=== PATIENT | male | born 1955 | race Caucasian/White ===

== ENCOUNTER → 2019-07-29 | Outpatient (CLI) | payer BC ==
--- NOTE | 2019-07-29 08:09 | US ---
EXAMINATION TYPE: US liver DATE OF EXAM: 07/29/2019 COMPARISON: NONE CLINICAL HISTORY: B18.2 Chronic viral hepatitis C. abdominal pain, chronic viral hepatitis EXAM MEASUREMENTS: Liver Length: 14.2 cm Gallbladder Wall: 0.6 cm CBD: 0.4 cm Right Kidney: 11.3 x 5.8 x 5.2 cm Pancreas: Tail obscured by overlying bowel gas Liver: thrombus noted within intrahepatic veins Gallbladder: stones, thickened GB wall Evidence for sonographic Yates's sign: no CBD: appears wnl Right Kidney: no evidence of hydronephrosis IMPRESSION: 1. 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 2. Thickened gallbladder wall with gallstones correlate for cholecystitis. Report called to referring clinician. A Red level critical message alert has been initiated for Ashley Quiroz MD via the [employer] Critical Results System on 07/29/2019 8:06 AM. This message alert has been sent to Ashley Quiroz MD v [facility] the preferences provided by the clinician for the receipt of Radiology Critical Findings. Message ID [id number].
== END | disposition home or self-care (01) ==
LOC: RADUSWWP 07:08
PROVIDERS: ATTEND Internal Medicine Gastroenterology
DX: K80.20 Calculus of gallbladder without cholecystitis without obstruction (principal); B18.2 Chronic viral hepatitis C
CPT/HCPCS: 76705

== ENCOUNTER 2019-10-09 12:15 | Day surgery (SDC) | payer BC ==
[2019-10-09 12:45] LABS: Mean Platelet Volume 8.7; Platelet Count 198 k/uL (150-450)
[2019-10-09 12:51] VITALS: TEMP 97.9
[2019-10-09 13:02] LABS: INR 1.1 (<1.2); Prothrombin Time 11.4 sec (9.0-12.0)
[2019-10-09] MEDS ORDERED: ALBUMIN HUMAN 25% 50 ML in EMPTY BAG 1 BAG IVPB SCH (14:00)
[2019-10-09 14:57] VITALS: BP 101/70; PULSE 73; RESP 14
--- NOTE | 2019-10-09 16:23 | US ---
EXAMINATION TYPE: US paracentesis abd w/image DATE OF EXAM: 10/09/2019 CLINICAL HISTORY: Ascites The procedure was discussed with the patient. The risks, complications, benefits, and alternatives we re discussed and any questions were answered. Informed consent was obtained. The patient was placed s upine on the ultrasound table and prepped and draped in the usual sterile fashion. All elements of maximal barrier technique were utilized. Under ultrasound guidance, access into the right lower quadrant was obtained with a 5 Maori one-step centesis catheter. Approximately 3.9 liters of clear serous fluid was removed. Catheter was removed and sterile bandage was applied. The patient was stable throughout the procedure and remained stable upon discharge from Department of Radiology. IMPRESSION: Successful ultrasound-guided paracentesis, with removal of 3.9 liters of clear serous fluid.
== END 2019-10-09 15:05 | disposition home or self-care (01) ==
LOC: RADPROMAIN 12:15
PROVIDERS: ATTEND Internal Medicine Gastroenterology
DX: R18.8 Other ascites (principal)
CPT/HCPCS: 36415; 49083; 82565; 85049; 85610

== ENCOUNTER 2019-10-23 08:50 | Day surgery (SDC) | payer BC ==
[2019-10-23 09:26] LABS: Mean Platelet Volume 8.7; Platelet Count 197 k/uL (150-450)
[2019-10-23 09:47] LABS: Prothrombin Time 10.5 sec (9.0-12.0)
[2019-10-23 10:30] VITALS: RESP 16
[2019-10-23 10:31] VITALS: TEMP 97.3
[2019-10-23] MEDS: ALBUMIN HUMAN 25% 50 ML in EMPTY BAG 1 BAG IVPB SCH ×3 (11:07→11:42)
[2019-10-23 11:43] VITALS: BP 95/66; PULSE 62
[2019-10-23 12:11] LABS: Basophils # (A) 0.1 k/uL (0-0.2); Basophils % (A) 1 %; Eosinophils # (A) 0.1 k/uL (0-0.7); Eosinophils % (A) 2 %; HCT 41.7 % (39.0-53.0); HGB 13.2 gm/dL (13.0-17.5); Lymphocytes # (A) 0.8 k/uL (1.0-4.8); Lymphocytes % (A) 11 %; MCH 31.7 pg (25.0-35.0); MCHC 31.6 g/dL (31.0-37.0); MCV 100.4 fL (80.0-100.0); Macrocytosis Slight; Monocytes # (A) 0.5 k/uL (0-1.0); Monocytes % (A) 7 %; Neutrophils # (A) 5.9 k/uL (1.3-7.7); Neutrophils % (A) 79 %; RBC 4.15 m/uL (4.30-5.90); RDW 14.9 % (11.5-15.5); WBC 7.4 k/uL (3.8-10.6)
[2019-10-23 12:26] LABS: Albumin 4.1 g/dL (3.5-5.0); Calcium 9.5 mg/dL (8.4-10.2); Potassium 4.4 mmol/L (3.5-5.1); Total Bilirubin 0.9 mg/dL (0.2-1.3)
--- NOTE | 2019-10-23 13:36 | US ---
EXAMINATION TYPE: US paracentesis abd w/image DATE OF EXAM: 10/23/2019 COMPARISON: NONE HISTORY: Ascites. PROCEDURE: Maximal barrier technique was utilized. The skin overlying a suitable pocket of fluid was localized with ultrasound and the overlying skin was prepped and draped. Ultrasound was utilized with sterile technique. Lidocaine was used for local anesthesia and a skin raymundo made with a scalpel. Catheter was advanced under direct ultrasound guidance into a suitable pocket of fluid and approximately 3.9 liter s of serous fluid were removed. Catheter was withdrawn and hemostasis achieved. There is no immedia te complication; the patient is discharged in stable condition. IMPRESSION: STATUS POST ULTRASOUND GUIDED PARACENTESIS FOR PALLIATION OF ASCITES. THIS PROCEDURE WA S PERFORMED BY THE UNDERSIGNED.
== END 2019-10-23 11:55 | disposition home or self-care (01) ==
LOC: RADPROMAIN 08:50
PROVIDERS: ATTEND Internal Medicine Gastroenterology
DX: R18.8 Other ascites (principal); C22.0 Liver cell carcinoma
CPT/HCPCS: 80053; 85025; 85610; 36415; 49083; P9047

== ENCOUNTER 2019-11-19 08:03 | Day surgery (SDC) | payer BC ==
[2019-11-19 09:03] LABS: Mean Platelet Volume 9.7; Platelet Count 239 k/uL (150-450)
[2019-11-19 09:42] LABS: INR 1.1 (<1.2); Prothrombin Time 11.6 sec (9.0-12.0)
[2019-11-19 10:13] VITALS: RESP 18; TEMP 97.4
[2019-11-19] MEDS: ALBUMIN HUMAN 25% 50 ML in EMPTY BAG 1 BAG IVPB SCH ×2 (11:11→11:30)
[2019-11-19 11:21] VITALS: BP 111/80; PULSE 71
--- NOTE | 2019-11-19 13:08 | US ---
Ultrasound-guided paracentesis. DATE OF EXAM: 11/19/2019 CLINICAL HISTORY: Ascites The procedure was discussed with the patient. The risks, complications, benefits, and alternatives we re discussed and any questions were answered. Informed consent was obtained. The patient was placed s upine on the ultrasound table and prepped and draped in the usual sterile fashion. All elements of maximal barrier technique were utilized. Under ultrasound guidance, access into the left lower quadrant was obtained, via the paracentesis catheter system and direct ultrasound guidance . Approximately 6 liters of straw-colored fluid was removed. The patient was stable throughout the proc edure and remained stable upon discharge from Department of Radiology. IMPRESSION: Successful paracentesis under ultrasound guidance.
== END 2019-11-19 11:45 | disposition home or self-care (01) ==
LOC: RADPROMAIN 08:03
PROVIDERS: ATTEND Internal Medicine Gastroenterology
DX: R18.8 Other ascites (principal)
CPT/HCPCS: 82565; 85049; 85610; 36415; 49083; P9047